=== PATIENT | female | born 1990 | race Caucasian/White ===

== ENCOUNTER 2021-07-25 09:16 | Emergency (ER) | payer BC ==
[~2021-07-25] VITALS: Ht 162.6 cm; Wt 67.7 kg
[2021-07-25] MEDS ORDERED: IV NORMAL SALINE 1,000ML 1,000 ML IV ONE (09:45)
[2021-07-25] MEDS ORDERED: KETOROLAC 15 MG/ML VIAL. IVP ONE (09:45)
--- NOTE | 2021-07-25 09:53 | EKG ---
[address] [address] Test Date: 2021-07-25 Test Time: 09:45:57 Pat Name: ABAD WORKMAN Department: Room: Gender: F Grounds Supervisor: CHARLOTTE : 1990 Requested By: FRANK KAUR Order Number: [id number] Reading MD: Chadwick Valdivia MD Measurements Intervals Ariel Rate: 61 P: 58 OK: 140 QRS: 39 QRSD: 80 T: 24 QT: 396 QTc: 404 Interpretive Statements SINUS RHYTHM Electronically Signed On 07-25-2021 11:47:18 CDT by Chadwick Valdivia MD
--- NOTE | 2021-07-25 10:12 | RAD ---
EXAM: Head CT without contrast. HISTORY: Seizure-like activity. TECHNIQUE: Computed tomographic images of the head were obtained without contrast. *One or more of the following individualized dose reduction techniques were utilized for this examina tion: 1. Automated exposure control. 2. Adjustment of the mA and/or kV according to patient size. 3. Use of iterative reconstruction technique. COMPARISON: None. FINDINGS: There is no acute or subacute extra-axial or intraparenchymal hemorrhage. There is no mass effect or midline shift. There is no hydrocephalus. The shine-white matter differentiation pattern is intact. There is a small air-fluid level within the posterior sphenoid sinus. The mastoid air cells are clear. There is no suspicious calvarial lesion. IMPRESSION: No acute intracranial findings. Electronically signed by: Bernie Briggs MD (07/25/2021 10:09 AM) [facility]
--- NOTE | 2021-07-25 10:16 | PHYS DOC ---
Past History Additional Past Medical Histor: insomnia Past Surgical History: Other Additional Past Surgical Histo: Adenoidectomy Smoking: Non-smoker Alcohol Use: Occasionally Drug Use: None General Adult EDM: Chief Complaint: BACK PAIN OR INJURY HPI: HPI: 30-year-old female presents via EMS with concern for syncopal episode with some tremulousness. Patient reports sudden low back pain that occurred while patient was seated at work. Patient denies history of seizures. Patient does have chronic insomnia. Patient denies any fever chills. Denies cough. Denies chest pain. Denies exposure to COVID-19. Patient has received both Moderna vaccinations. Reports last dose was on 12/06/2020. Review of Systems: Review of Systems: Constitutional: Denies fever or chills Eyes: Denies redness or eye pain HENT: Denies nasal congestion or sore throat Respiratory: Denies cough or shortness of breath Cardiovascular: Denies chest pain or palpitations GI: Denies abdominal pain, nausea, or vomiting : Denies dysuria or hematuria Musculoskeletal: Reports low back pain Integument: Denies rash or skin lesions Neurologic: Denies headache; reports syncopal episode and tremulousness Complete systems were reviewed and found to be within normal limits, except as documented in this note. Current Medications: Current Meds: Current Medications Medications (Trade) Dose Ordered Sig/Dina Start Time Stop Time Status Last Admin Dose Admin Ketorolac Tromethamine (Toradol 15mg Vial) 15 mg 1X ONCE 07/25/21 09:45 07/25/21 09:46 UNV Sodium Chloride 1,000 ml @ 1,000 mls/hr 1X ONCE 07/25/21 09:45 07/25/21 10:44 07/25/21 09:50 1,000 MLS/HR Allergies: Allergies: Allergies Coded Allergies Type Severity Reaction Last Updated Verified Penicillins Allergy Unknown Rash 07/25/21 Yes amoxicillin Allergy Unknown Rash 07/25/21 Yes clavulanic acid Allergy Unknown Rash 07/25/21 Yes Physical Exam: PE: Constitutional: Well developed, well nourished, no acute distress, non-toxic appearance HENT: Normocephalic, atraumatic Eyes: PERRL, EOMI, conjunctiva normal, no discharge, no nystagmus Neck: Normal range of motion, no tenderness, supple Lungs & Thorax: No respiratory distress, equal chest rise and fall Abdomen: Soft, no tenderness Skin: Warm, dry, no erythema, no rash Back: No midline tenderness, left paraspinal lumbar tenderness noted, no CVA tenderness Extremities: No tenderness, ROM intact, no edema Neurologic: Alert and oriented X 3, normal motor function, normal sensory function, no focal deficits noted Psychologic: Affect normal, judgment normal Current Patient Data: Labs: Laboratory Tests Test 07/25/21 10:14 POC Urine HCG, Qualitative hcg negative (Negative) Vital Signs: Vital Signs Date Time Temp Pulse Resp B/P (MAP) Pulse Ox O2 Delivery O2 Flow Rate FiO2 07/25/21 09:53 56 18 118/67 (84) 100 Room Air 07/25/21 09:20 97.7 EKG: EKG: @0945 NSR at 61bpm, NO ST elevation, QRS 80ms, QT/QTc 396/404ms Radiology/Procedures: Radiology/Procedures: PROCEDURE: CT HEAD WO CONTRAST EXAM: Head CT without contrast. HISTORY: Seizure-like activity. TECHNIQUE: Computed tomographic images of the head were obtained without contrast. *One or more of the following individualized dose reduction techniques were utilized for this examination: 1. Automated exposure control. 2. Adjustment of the mA and/or kV according to patient size. 3. Use of iterative reconstruction technique. COMPARISON: None. FINDINGS: There is no acute or subacute extra-axial or intraparenchymal hemorrhage. There is no mass effect or midline shift. There is no hydrocephalus. The shine-white matter differentiation pattern is intact. There is a small air- fluid level within the posterior sphenoid sinus. The mastoid air cells are clear. There is no suspicious calvarial lesion. IMPRESSION: No acute intracranial findings. Electronically signed by: Bernie Briggs MD (07/25/2021 10:09 AM) [facility] Heart Score: C/O Chest Pain: N/A Course & Med Decision Making: Course & Med Decision Making Pertinent Labs and Imaging studies reviewed. (See chart for details) Patient presents via EMS with report of syncopal episode with witnessed seizure- like activity. Patient with some back pain which is not midline in nature. Labs obtained and posted to chart. UA with signs of infection. Empiric antibiotic initiated. CT head without acute process. Other labs within normal limits. Patient stable for discharge with outpatient follow-up with PCP/neurologist. Neurology referral provided. Discussed findings and plan with patient, who acknowledges understanding and agreement. Antonio Disclaimer: Antonio Disclaimer: This electronic medical record was generated, in whole or in part, using a voice recognition dictation system. Departure Departure: Impression: Primary Impression: Vasovagal episode Additional Impressions: Back pain Qualified Codes: M54.50 - Low back pain, unspecified UTI (urinary tract infection) Qualified Codes: N30.00 - Acute cystitis without hematuria Witnessed seizure-like activity Disposition: HOME / SELF CARE / HOMELESS Condition: STABLE Referrals: PCP,FRANSICO (PCP) YOSEF GALLO MD Patient Instructions: Back Pain, Adult, [id number], Seizure, Adult, [id number], Syncope, [id number], Urinary Tract Infection, [id number] Additional Instructions: Given witness seizure like activity: it is recommended that your refrain from driving or operating heavy machinery for 6 months to ensure no further seizure like activity or be cleared by a neurologist. ICE area of discomfort 20 min on then leave off next 20 mins. Repeat several times daily as needed for next few days. May take over the counter Tylenol and/or Ibuprofen for pain or discomfort. Call Dr. Agustin Black (pain management) for further evaluation and treatment for your back. [address] [facility], [address] [place] [address] Scripts Orphenadrine Citrate (ORPHENADRINE CITRATE) 100 Mg Tablet.er 1 TAB PO BID PRN for MUSCLE PAIN, #14 TAB 0 Refills Prov: FRANK KAUR DO 07/25/21 Cephalexin (KEFLEX) 500 Mg Capsule 1 CAP PO TID for UTI for 7 Days, #21 CAP Prov: FRANK KAUR DO 07/25/21 FRANK KAUR DO Jul 25, 2021 10:16
[2021-07-25 10:21] LABS: CALCIUM 8.9 mg/dL (8.5-10.1); CREATININE 0.9 mg/dL (0.6-1.0)
[2021-07-25 10:25] LABS: BASO % 1 % (0-3); EOS # 0.2 x10^3/uL (0.0-0.7); EOS % 3 % (0-3); HEMATOCRIT 41.1 % (36.0-47.0); HEMOGLOBIN 13.6 g/dL (12.0-15.5); LYMPH # 1.7 x10^3/uL (1.0-4.8); LYMPH % 23 % (24-48); MEAN CORPUSCULAR HEMOGLOBIN 31 pg (25-35); MEAN CORPUSCULAR HGB CONC 33 g/dL (31-37); MEAN CORPUSCULAR VOLUME 95 fL (79-100); MONO # 0.3 x10^3/uL (0.0-1.1); MONO % 4 % (0-9); NEUT # 5.1 x10^3uL (1.8-7.7); NEUT % 69 % (31-73); PLATELET COUNT 169 x10^3/uL (140-400); RED BLOOD COUNT 4.35 x10^6/uL (3.50-5.40); RED CELL DISTRIBUTION WIDTH 13.1 % (11.5-14.5); WHITE BLOOD COUNT 7.4 x10^3/uL (4.0-11.0)
[2021-07-25 10:36] LABS: ALBUMIN 3.8 g/dL (3.4-5.0); ALBUMIN/GLOBULIN RATIO 1.1 (1.0-1.7); TOTAL BILIRUBIN 0.2 mg/dL (0.2-1.0); TOTAL PROTEIN 7.2 g/dL (6.4-8.2)
[2021-07-25 11:17] LABS: BACTERIA,URINE MOD /HPF (0-FEW); BILIRUBIN,URINE NEG (NEG); CLARITY,URINE HAZY; COLOR,URINE YELLOW; GLUCOSE,URINE NEG (NEG); NITRITE,URINE NEG (NEG); RBC,URINE OCC /HPF (0-2); SQUAMOUS EPITHELIAL CELL,UR FEW /LPF; UROBILINOGEN,URINE 0.2 mg/dL (0.2 mg/dL); WBC,URINE 20-40 /HPF (0-4)
[2021-07-25] MEDS ORDERED: IV NORMAL SALINE 50ML 50 ML ONE (11:43)
[2021-07-25] MEDS ORDERED: cefTRIAXone SODIUM 1 GM VIAL ONE (11:43)
[2021-07-25] MEDS ORDERED: ORPH-16 PO (12:10)
[2021-07-25] MEDS ORDERED: CEPH500C PO (12:10)
[2021-07-25] MEDS ORDERED: ORPHENADRINE CITRATE 60 MG/2 ML VIAL. IV ONE (12:15)
[2021-07-25 12:21] VITALS: BP 111/63
== END 2021-07-25 12:32 | disposition home or self-care (01) ==
LOC: ER 09:16
DX: N30.00 Acute cystitis without hematuria (principal); R56.9 Unspecified convulsions; M54.59 Other low back pain; R55 Syncope and collapse; Z88.0 Allergy status to penicillin; Z88.1 Allergy status to other antibiotic agents
CPT/HCPCS: 36415; 70450; 80053; 81001; 81025; 82550; 83605; 83735; 85025; 87077; 87086; 93005; 96361; 96365; 96375; 99285; J0696; J1885; J2360; J7030